=== PATIENT | female | born 1990 | race Caucasian/White ===

== ENCOUNTER 2019-02-09 20:32 | Emergency (ER) | payer OTHER ==
[~2019-02-09] VITALS: Ht 154.9 cm; Wt 69.4 kg
[~2019-02-09 20:32] MED LIST: ATOR40TA PO; BENA40TA PO; DULO30EC PO; HUM SUBQ; LANTUS SUBQ; METF500T PO; METO-460 PO; METO25TA PO; METR250T2 PO; PRAV20TA2 PO
[2019-02-09 20:39] VITALS: BP 150/100
--- NOTE | 2019-02-09 20:46 | NUR ---
PT AMBULATED TO THE RESTROOM, GAVE U/A SPECIMEN AND OUT TO LOBBY, VSS
--- NOTE | 2019-02-09 21:49 | NUR ---
BIB SELF. PT C/O RIGHT ARM PAIN P/S FALL. PT HAS LIMTED ROM TO THE RIGHT ARM. PT HAS PAIN TO THE RIGHT SHOULDER AND ELBOW. PT HAS ABRASIONS TO THE LEFT FINGER, ELBOW AND LEFT KNEE. DENIES HITTING HEAD, NO LOC.
--- NOTE | 2019-02-09 22:42 | NUR ---
PATIENT REQUESTING PAIN MEDICATION, NOMI MADE AWARE.
[2019-02-09] MEDS ORDERED: HYDROcodone/APAP 7.5/325 MG 1 TAB PO ONE (22:45)
[2019-02-09 23:57] VITALS: BP 150/100
--- NOTE | 2019-02-09 23:58 | NUR ---
Patient discharged with v/s stable. Written and verbal after care instructions given and explained. Patient alert, oriented and verbalized understanding of instructions. Ambulatory with steady gait. All questions addressed prior to discharge. ID band removed. Patient advised to follow up with PMD. Rx of MARCIAL FERRIS given. Patient educated on indication of medication including possible reaction and side effects. Opportunity to ask questions provided and answered. Addendum: 02/09/19 at 2358 by TERESITA WAITING IN LOBBY TO BE PICKED UP BY MOTHER.
== END 2019-02-09 23:58 | disposition home or self-care (01) ==
LOC: MED 20:32
DX: S52.121A Displaced fracture of head of right radius, initial encounter for closed fracture (principal); S40.812A Abrasion of left upper arm, initial encounter; S80.212A Abrasion, left knee, initial encounter; E11.9 Type 2 diabetes mellitus without complications; I10 Essential (primary) hypertension; E05.90 Thyrotoxicosis, unspecified without thyrotoxic crisis or storm; Z88.0 Allergy status to penicillin; Z79.4 Long term (current) use of insulin; Z79.899 Other long term (current) drug therapy; W01.0XXA Fall on same level from slipping, tripping and stumbling without subsequent striking against object, initial encounter; Y93.02 Activity, running; Y92.89 Other specified places as the place of occurrence of the external cause; Y99.8 Other external cause status
CPT/HCPCS: 29105; 73030; 73080; 81025; 82948; 99284

== ENCOUNTER 2019-05-01 14:30 | Emergency (ER) | payer OTHER ==
[~2019-05-01] VITALS: Ht 154.9 cm; Wt 67.7 kg
[2019-05-01 14:53] VITALS: BP 153/106
--- NOTE | 2019-05-01 15:00 | NUR ---
BIB . AAO X4 C/O NECK PAIN SINCE WAKING UP THIS MORNING. CONSTANT PRESSURE PAIN FORM BASE OF HEAD TO TOP OF SHOULDER BLADES AT 8/10. PT UNABLE TO STRAIGHTEN HEAD WITHOUT SEVERE PAIN. PT STATES SHE WAS MOVING HEAVY OBJECTS YESTERDAY. + N/V. HOB UP. BED SIDE RAILS UP X1. ON LOW BED POSITION, LOCKED. ER TO EVALUATE PT.
--- NOTE | 2019-05-01 15:00 | NUR ---
PATIENT AMBULATED TO BED 10 AT THIS TIME.
[2019-05-01] MEDS ORDERED: MORPHINE SULFATE 4 MG/ML SYR IM ONE (15:05)
--- NOTE | 2019-05-01 16:47 | NUR ---
DR PANDYA AT BEDSIDE FOR PT EVALUATION
[2019-05-01 16:56] VITALS: BP 144/88
--- NOTE | 2019-05-01 16:56 | NUR ---
Patient discharged with v/s stable. Written and verbal after care instructions given and explained. Patient alert, oriented and verbalized understanding of instructions. Ambulatory with steady gait. All questions addressed prior to discharge. ID band removed. Patient advised to follow up with PMD. Rx of NORCO 5MG-325MG given. Patient educated on indication of medication including possible reaction and side effects. Opportunity to ask questions provided and answered.
== END 2019-05-01 16:56 | disposition home or self-care (01) ==
LOC: MED 14:30
DX: S13.4XXA Sprain of ligaments of cervical spine, initial encounter (principal); I47.1 Supraventricular tachycardia; E11.9 Type 2 diabetes mellitus without complications; I10 Essential (primary) hypertension; E05.90 Thyrotoxicosis, unspecified without thyrotoxic crisis or storm; Z98.84 Bariatric surgery status; Z79.4 Long term (current) use of insulin; Z79.899 Other long term (current) drug therapy; Z88.0 Allergy status to penicillin; X58.XXXA Exposure to other specified factors, initial encounter; Y93.89 Activity, other specified; Y92.89 Other specified places as the place of occurrence of the external cause; Y99.8 Other external cause status
CPT/HCPCS: 81002; 81025; 96372; 99283; J2270

== ENCOUNTER 2020-01-24 02:08 | Emergency (ER) | payer OTHER ==
[~2020-01-24] VITALS: Ht 154.9 cm; Wt 70.3 kg
[2020-01-24 02:14] VITALS: BP 160/98
--- NOTE | 2020-01-24 02:27 | NUR ---
RECEIVED A 29/F FROM TRIAGE WITH C/O LEG FOREARM SWELLING S/T A POSSIBLE BUG BITE. MINIMAL SWELLING NOTED TO LEFT FOREARM. FULL ROM. CMS INTACT. IN BED FOR MSE.
[2020-01-24] MEDS ORDERED: IBUPROFEN 800 MG TAB PO ONE (02:45)
[2020-01-24 02:51] VITALS: BP 160/98
--- NOTE | 2020-01-24 02:51 | NUR ---
Patient discharged with v/s stable. Written and verbal after care instructions given and explained. Patient alert, oriented and verbalized understanding of instructions. Ambulatory with steady gait. All questions addressed prior to discharge. ID band removed. Patient advised to follow up with PMD. Rx of MOTRIN, BENEDRYL CREAM given. Patient educated on indication of medication including possible reaction and side effects. Opportunity to ask questions provided and answered.
== END 2020-01-24 02:51 | disposition home or self-care (01) ==
LOC: MED 02:08
DX: S50.862A Insect bite (nonvenomous) of left forearm, initial encounter (principal); E05.90 Thyrotoxicosis, unspecified without thyrotoxic crisis or storm; E11.9 Type 2 diabetes mellitus without complications; I10 Essential (primary) hypertension; I51.89 Other ill-defined heart diseases; N28.9 Disorder of kidney and ureter, unspecified; Z88.0 Allergy status to penicillin; Z79.899 Other long term (current) drug therapy; W57.XXXA Bitten or stung by nonvenomous insect and other nonvenomous arthropods, initial encounter; Y93.89 Activity, other specified; Y92.89 Other specified places as the place of occurrence of the external cause; Y99.8 Other external cause status
CPT/HCPCS: 99282

== ENCOUNTER 2020-04-05 04:37 | Emergency (ER) | payer OTHER ==
[~2020-04-05] VITALS: Ht 154.9 cm; Wt 67.6 kg
[2020-04-05 04:43] VITALS: BP 153/108
--- NOTE | 2020-04-05 04:49 | NUR ---
PT AMBULATED TO BED 4 WITH STEADY GAIT.
--- NOTE | 2020-04-05 04:52 | NUR ---
Laurence elmore in [facility] - 04/05/20 at [address] Parra examining patient.
--- NOTE | 2020-04-05 04:52 | NUR ---
ERMD AT BEDSIDE.
[2020-04-05] MEDS ORDERED: NACL 0.9% 1,000 ML IV ONE (05:00)
[2020-04-05] MEDS ORDERED: KETOROLAC 15 MG/ML VIAL IVP ONE (05:00)
[2020-04-05] MEDS ORDERED: METOCLOPRAMIDE 10 MG/2 ML INJ VIAL IVP ONE (05:00)
[2020-04-05] MEDS ORDERED: diphenhydrAMINE 50 MG/ML VIAL IVP ONE (05:00)
--- NOTE | 2020-04-05 05:13 | NUR ---
RECEIVED A 29/F FROM TRIAGE WITH A C/O POSTERIOR HEAD PAIN WITH N/V X 1 HR. PT DENIES HX OF MIGRAINE HEADACHE. DENIES BLURRED VISION, INJURY/TRAUMA. NO OBVIOUS NEURO DEFECITS NOTED. PT IS ACTIVLEY VOMITTING. WILL MEDICATE ORDERED AND REASSESS.
--- NOTE | 2020-04-05 05:22 | NUR ---
PT NOW RATES PAIN AT 2/10. BP DECREASED TO 132/84. SLEEPING COMFORTABLY.
[2020-04-05 07:17] VITALS: BP 153/108
--- NOTE | 2020-04-05 07:18 | NUR ---
Patient discharged with v/s stable. Written and verbal after care instructions given and explained. Patient alert, oriented and verbalized understanding of instructions. Ambulatory with steady gait. All questions addressed prior to discharge. ID band removed. Patient advised to follow up with PMD. Rx of TYLENOL; MOTRIN given. Patient educated on indication of medication including possible reaction and side effects. Opportunity to ask questions provided and answered.
== END 2020-04-05 07:18 | disposition home or self-care (01) ==
LOC: MED 04:37
DX: R51 Headache (principal)
CPT/HCPCS: 96374; 96375; 99284; J1200; J1885; J2765; J7030

== ENCOUNTER 2020-07-30 22:10 | Emergency (ER) | payer OTHER ==
[~2020-07-30] VITALS: Ht 154.9 cm; Wt 68.9 kg
[~2020-07-30 22:10] MED LIST changes: +METR-520 PO; -METR250T2 PO
[2020-07-30 22:20] VITALS: BP 164/119
[2020-07-30] MEDS ORDERED: LORazepam 0.5 MG TAB PO ONE (22:40)
[2020-07-30] MEDS ORDERED: ONDANSETRON 4 MG ODT PO ONE (22:40)
[2020-07-30] MEDS ORDERED: KETOROLAC 30 MG/ML VIAL IM ONE (22:40)
[2020-07-30 22:54] LABS: BASOPHILS # (AUTO) 0.1 K/uL (0.00-0.22); BASOPHILS % (AUTO) 0.9 % (0.0-2.0); EOSINOPHILS # (AUTO) 0.3 K/uL (0-0.4); EOSINOPHILS % (AUTO) 2.8 % (0.0-4.0); HEMATOCRIT 40.8 % (36-48); HEMOGLOBIN 13.8 g/dL (12.0-16.0); LYMPHOCYTES # (AUTO) 2.9 K/uL (2.5-16.5); MEAN CORPUSCULAR HEMOGLOBIN 30 pg (27-31); MEAN CORPUSCULAR HGB CONC 34 g/dL (33-37); MONOCYTES # (AUTO) 0.7 K/uL (0.8-1.0); MONOCYTES % (AUTO) 7.5 % (1.7-9.3); NEUTROPHILS # (AUTO) 5.2 K/uL (1.8-7.7); NEUTROPHILS % (AUTO) 56.8 % (42.2-75.2); PLATELET COUNT (AUTO) 296 K/uL (140-450); RED BLOOD CELL COUNT(AUTO) 4.69 MIL/uL (4.20-5.40); RED CELL DISTRIBUTION WIDTH 13.2 % (11.6-13.7); WHITE BLOOD COUNT (AUTO) 9.1 K/uL (4.8-10.8)
[2020-07-30 23:03] LABS: ANION GAP 11.2 (8-16); CARBON DIOXIDE 31.8 mmol/L (21-32); CREATININE 1.5 mg/dL (0.6-1.3)
[2020-07-31 00:50] VITALS: BP 135/97
== END 2020-07-31 00:50 | disposition home or self-care (01) ==
LOC: MED 22:10
DX: N93.8 Other specified abnormal uterine and vaginal bleeding (principal); E11.9 Type 2 diabetes mellitus without complications; I10 Essential (primary) hypertension; E07.9 Disorder of thyroid, unspecified; Z79.4 Long term (current) use of insulin; Z98.890 Other specified postprocedural states; Z79.899 Other long term (current) drug therapy; Z88.0 Allergy status to penicillin; Z86.79 Personal history of other diseases of the circulatory system
CPT/HCPCS: 36415; 76830; 80048; 81025; 85025; 96372; 99284; J1885; Q0162

== ENCOUNTER 2021-12-26 11:03 | Emergency (ER) | payer OTHER ==
[~2021-12-26] VITALS: Ht 154.9 cm; Wt 68.0 kg
[2021-12-26 11:08] VITALS: BP 174/108
--- NOTE | 2021-12-26 11:11 | NUR ---
AMBULATED TO BED 6 WITH STEADY GAIT
--- NOTE | 2021-12-26 11:14 | NUR ---
AMBULATED TO BATHROOM WITH STEADY GAIT
[2021-12-26] MEDS ORDERED: NACL 0.9% 1,000 ML IV ONE ×2 (11:30)
[2021-12-26] MEDS ORDERED: ONDANSETRON 4 MG/2 ML VIAL IVP ONE (11:30)
[2021-12-26] MEDS ORDERED: KETOROLAC 30 MG/ML VIAL IVP ONE (11:30)
[2021-12-26] MEDS ORDERED: PANTOPRAZOLE 40 MG INJ VIAL IVP ONE (11:30)
--- NOTE | 2021-12-26 11:35 | NUR ---
XRAY AT BEDSIDE
--- NOTE | 2021-12-26 11:38 | NUR ---
31 Y/O F BIB SELF C/O MID CHEST PAIN 8/10 SINCE LAST NIGHT. C/O N/V/D SINCE THIS MORNING. PT BLOOD GLUCOSE 487. PT TOOK HER INSULINE 1100 BEFOR ARIVAL 15 UNITS OF REGURLAR INSULIN. ALLERGIES: PENICILLIN PMH: HTN, DM TYPE 1, DEPRESSION, ANXIETY, GI PACEMAKER
--- NOTE | 2021-12-26 11:40 | NUR ---
LAB AT BEDSIDE.
[2021-12-26 11:56] LABS: BASOPHILS # (AUTO) 0.1 K/uL (0.00-0.22); BASOPHILS % (AUTO) 1.1 % (0.0-2.0); EOSINOPHILS # (AUTO) 0.2 K/uL (0-0.4); EOSINOPHILS % (AUTO) 2.7 % (0.0-4.0); HEMATOCRIT 40.2 % (36-48); HEMOGLOBIN 13.3 g/dL (12.0-16.0); LYMPHOCYTES # (AUTO) 1.6 K/uL (2.5-16.5); LYMPHOCYTES % (AUTO) 25.2 % (20.5-51.1); MEAN CORPUSCULAR HEMOGLOBIN 28 pg (27-31); MEAN CORPUSCULAR HGB CONC 33 g/dL (33-37); MEAN CORPUSCULAR VOLUME 85.5 fL (80-94); MONOCYTES # (AUTO) 0.4 K/uL (0.8-1.0); MONOCYTES % (AUTO) 6.7 % (1.7-9.3); NEUTROPHILS # (AUTO) 4.2 K/uL (1.8-7.7); NEUTROPHILS % (AUTO) 64.3 % (42.2-75.2); PLATELET COUNT (AUTO) 319 K/uL (140-450); RED BLOOD CELL COUNT(AUTO) 4.71 MIL/uL (4.20-5.40); RED CELL DISTRIBUTION WIDTH 13.7 % (11.6-13.7); WHITE BLOOD COUNT (AUTO) 6.5 K/uL (4.8-10.8)
--- NOTE | 2021-12-26 12:12 | NUR ---
NOTED INCREASED BP, STATED THAT THEY DIDNT TAKE THEIR LISINOPRIL 2.5 MG IN THE MORNING. PT ALSO STATED THAT THEY STARTED NEW MEDICATION, BUPROPRION 150MG THIS WEEK. CHEST PAIN DECREASED FROM 8 TO 6/10 FROM SHARP TO PRESSURE
[2021-12-26 12:24] LABS: ALBUMIN 3.1 g/dL (3.4-5.0); ANION GAP 13.2 (8-16); ASPARTATE AMINOTRANSFERASE 13 U/L (15-37); CARBON DIOXIDE 28.5 mmol/L (21-32); CHLORIDE 97 mmol/L (98-107); CREATININE 1.8 mg/dL (0.6-1.3); GFR ARICAN-AMERICAN 42 mL/min (>90); LIPASE 38 U/L (73-393); POTASSIUM 3.7 mmol/L (3.5-5.1); SODIUM SERUM 135 mmol/L (136-145); TOTAL BILIRUBIN 0.3 mg/dL (0.0-1.0); UREA NITROGEN, BLOOD 18 mg/dL (7-18)
[2021-12-26 12:36] LABS: GLUCOSE 476 mg/dL (74-106)
[2021-12-26 14:00] VITALS: BP 152/100
[2021-12-26] MEDS ORDERED: ONDA-188 SL (14:45)
--- NOTE | 2021-12-26 15:15 | NUR ---
Patient discharged with v/s stable. Written and verbal after care instructions ABOUT GASTRIC PAIN given and explained. Patient alert, oriented and verbalized understanding of instructions. Ambulatory with steady gait. All questions addressed prior to discharge. ID band removed. Patient advised to follow up with PMD. Rx of ZOFRAN given. Patient educated on indication of medication including possible reaction and side effects. Opportunity to ask questions provided and answered.
== END 2021-12-26 15:15 | disposition home or self-care (01) ==
LOC: MED 11:03
DX: E10.43 Type 1 diabetes mellitus with diabetic autonomic (poly)neuropathy (principal); K31.84 Gastroparesis; E10.65 Type 1 diabetes mellitus with hyperglycemia; R11.2 Nausea with vomiting, unspecified; R07.89 Other chest pain; E86.0 Dehydration; R00.0 Tachycardia, unspecified; F41.9 Anxiety disorder, unspecified; I10 Essential (primary) hypertension; E05.90 Thyrotoxicosis, unspecified without thyrotoxic crisis or storm; Z87.448 Personal history of other diseases of urinary system; Z98.890 Other specified postprocedural states; Z79.899 Other long term (current) drug therapy; Z88.0 Allergy status to penicillin
CPT/HCPCS: 36415; 71045; 80053; 81002; 81025; 82948; 83690; 84484; 85025; 85379; 93005; 96361; 96374; 96375; 99285; C9113; J1885; J2405; J7030; Q0092

== ENCOUNTER 2022-04-11 07:05 | Emergency (ER) | payer OTHER ==
[~2022-04-11] VITALS: Ht 154.9 cm; Wt 67.1 kg
[~2022-04-11 07:05] MED LIST changes: +METF-346 PO; -METF500T PO; +ONDA-188 SL
[2022-04-11 07:13] VITALS: BP 164/121
--- NOTE | 2022-04-11 07:20 | NUR ---
BIB SELF C/O N/V, GENERALIZED WEAKNESS, CADENA, LOWER BACK PAIN X 2 DAYS. BLOOD SUGAR 284 AT THIS TIME. PMH: DM, HTN, HLD, ANXIETY, DEPRESSION
--- NOTE | 2022-04-11 07:42 | NUR ---
PT AMB TO BED 9
[2022-04-11] MEDS: NACL 0.9% 1,000 ML IV SCH (07:53)
[2022-04-11 07:56] LABS: APPEARANCE,URINE CLEAR (CLEAR); BILIRUBIN,URINE NEGATIVE (NEGATIVE); BLOOD, URINE TRACE-I (NEGATIVE); COLOR,URINE YELLOW (YELLOW); LEUKOCYTE ESTERASE ,URINE NEGATIVE (NEGATIVE); NITRITE, URINE POSITIVE (NEGATIVE); PH,URINE 6.5 (5.0-9.0); UGLUCOSE 3+ (NEGATIVE)
[2022-04-11 07:58] LABS: HEMATOCRIT 37.9 % (36-48); HEMOGLOBIN 12.4 g/dL (12.0-16.0); MEAN CORPUSCULAR HEMOGLOBIN 28 pg (27-31); MEAN CORPUSCULAR HGB CONC 33 g/dL (33-37); MEAN CORPUSCULAR VOLUME 86.2 fL (80-94); PLATELET COUNT (AUTO) 335 K/uL (140-450); RED BLOOD CELL COUNT(AUTO) 4.39 MIL/uL (4.20-5.40); RED CELL DISTRIBUTION WIDTH 14.1 % (11.6-13.7); WHITE BLOOD COUNT (AUTO) 8.5 K/uL (4.8-10.8)
[2022-04-11 08:10] LABS: EOSINOPHILS % (MANUAL) 3 % (0-4); LYMPHOCYTES % (MANUAL) 18 % (20-46); MONOCYTES % (MANUAL) 7 % (5-12)
[2022-04-11 08:11] LABS: ALBUMIN 3.2 g/dL (3.4-5.0); ANION GAP 11.2 (8-16); CARBON DIOXIDE 31.5 mmol/L (21-32); CREATININE 1.5 mg/dL (0.6-1.3); POTASSIUM 4.7 mmol/L (3.5-5.1); TOTAL BILIRUBIN 0.2 mg/dL (0.0-1.0)
[2022-04-11 08:19] LABS: CORRECTED WHITE BLOOD COUNT 8.5 K/uL (4.5-11.0); EOSINOPHILS % (MANUAL) 3 % (0-4); LYMPHOCYTES % (MANUAL) 18 % (20-46); MONOCYTES % (MANUAL) 7 % (5-12)
[2022-04-11 09:19] LABS: WBC,URINE 0-5 /HPF (0-5)
[2022-04-11] MEDS: INSULIN REGULAR, HUMAN 100 UNIT/ML VIAL SUBQ ONE (10:48)
--- NOTE | 2022-04-11 12:45 | NUR ---
IV removed, catheter intact and site benign. Applied folded 4x4 gauze and tape to stop bleeding.
[2022-04-11 12:47] VITALS: BP 146/99
--- NOTE | 2022-04-11 12:47 | NUR ---
Patient discharged with v/s stable. Written and verbal after care instructions given and explained. Patient verbalized understanding. Ambulatory with steady gait. All questions addressed prior to discharge. Advised to follow up with PMD.
== END 2022-04-11 12:47 | disposition home or self-care (01) ==
LOC: MED 07:05
DX: E10.65 Type 1 diabetes mellitus with hyperglycemia (principal); R11.2 Nausea with vomiting, unspecified; I10 Essential (primary) hypertension; E10.9 Type 1 diabetes mellitus without complications; I47.1 Supraventricular tachycardia; Z79.899 Other long term (current) drug therapy; Z79.4 Long term (current) use of insulin; Z88.0 Allergy status to penicillin; Z98.890 Other specified postprocedural states
CPT/HCPCS: 36415; 80053; 81001; 81025; 82803; 83690; 85025; 87086; 96360; 96372; 99283; J1815; J7030; 96361

== ENCOUNTER 2022-05-16 19:12 | Emergency (ER) | payer OTHER ==
[~2022-05-16] VITALS: Ht 154.9 cm; Wt 68.0 kg
[2022-05-16] MEDS ORDERED: diphenhydrAMINE 50 MG/ML VIAL IVP ONE (19:50)
[2022-05-16] MEDS ORDERED: PROCHLORPERAZINE 10 MG/2 ML VIAL IVP ONE (19:50)
[2022-05-16] MEDS ORDERED: NACL 0.9% 1,000 ML IV ONE (19:50)
[2022-05-16 19:51] VITALS: BP 183/118
--- NOTE | 2022-05-16 19:52 | NUR ---
PT AMBULATED TO BED AT THIS TIME
[2022-05-16] MEDS ORDERED: KETOROLAC 30 MG/ML VIAL IVP ONE (20:20)
[2022-05-16 20:31] LABS: BASOPHILS # (AUTO) 0.1 K/uL (0.00-0.22); BASOPHILS % (AUTO) 0.7 % (0.0-2.0); EOSINOPHILS # (AUTO) 0.4 K/uL (0-0.4); EOSINOPHILS % (AUTO) 3.7 % (0.0-4.0); HEMATOCRIT 39.6 % (36-48); HEMOGLOBIN 13.1 g/dL (12.0-16.0); LYMPHOCYTES # (AUTO) 2.3 K/uL (2.5-16.5); LYMPHOCYTES % (AUTO) 20.9 % (20.5-51.1); MEAN CORPUSCULAR HEMOGLOBIN 28 pg (27-31); MEAN CORPUSCULAR HGB CONC 33 g/dL (33-37); MEAN CORPUSCULAR VOLUME 85.7 fL (80-94); MONOCYTES # (AUTO) 1.1 K/uL (0.8-1.0); MONOCYTES % (AUTO) 9.5 % (1.7-9.3); NEUTROPHILS # (AUTO) 7.2 K/uL (1.8-7.7); NEUTROPHILS % (AUTO) 65.2 % (42.2-75.2); PLATELET COUNT (AUTO) 345 K/uL (140-450); RED BLOOD CELL COUNT(AUTO) 4.62 MIL/uL (4.20-5.40); RED CELL DISTRIBUTION WIDTH 13.9 % (11.6-13.7); WHITE BLOOD COUNT (AUTO) 11.1 K/uL (4.8-10.8)
--- NOTE | 2022-05-16 20:42 | NUR ---
31YR OLD FEMALE BIB SELF C/O VOMITING CADENA GLUC HIGH. PT IS A DM INSULIN DEPENDENT LAST ACCU CHECK [id number] FROM PATIENTS PERSONAL READING. 06/25 PAIN LEVEL FOR CADENA. DENIES FEVER CP COUGH OR SOB. 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 HOB ELEVATED. BED AT LOWEST POSITION. PCN DM HTN
[2022-05-16 20:52] LABS: ALBUMIN 3.4 g/dL (3.4-5.0); ANION GAP 13.3 (8-16); CARBON DIOXIDE 31.2 mmol/L (21-32); CREATININE 1.7 mg/dL (0.6-1.3); POTASSIUM 4.5 mmol/L (3.5-5.1); TOTAL BILIRUBIN 0.1 mg/dL (0.0-1.0)
[2022-05-16 21:24] VITALS: BP 153/97
--- NOTE | 2022-05-16 21:33 | NUR ---
The patient's care was reviewed and supervised by Prudence Zavala RN.
== END 2022-05-16 21:24 | disposition home or self-care (01) ==
LOC: MED 19:12
DX: R51.9 Headache, unspecified (principal); I10 Essential (primary) hypertension; N18.9 Chronic kidney disease, unspecified; E03.9 Hypothyroidism, unspecified; I25.10 Atherosclerotic heart disease of native coronary artery without angina pectoris; Z88.0 Allergy status to penicillin; Z79.899 Other long term (current) drug therapy
CPT/HCPCS: 36415; 80053; 81025; 85025; 96361; 96374; 96375; 99284; J0780; J1200; J1885; J7030

== ENCOUNTER 2022-11-04 20:48 | Emergency (ER) | payer OTHER ==
[~2022-11-04] VITALS: Ht 154.9 cm; Wt 69.4 kg
[2022-11-04 20:53] VITALS: BP 142/83
--- NOTE | 2022-11-05 00:40 | NUR ---
Dr. White examining patient.
[2022-11-05] MEDS ORDERED: CLAR500T14 PO (00:46)
[2022-11-05] MEDS ORDERED: BENZ200C4 PO (00:46)
[2022-11-05 00:49] VITALS: BP 142/83
--- NOTE | 2022-11-05 00:49 | NUR ---
Patient discharged with v/s stable. Written and verbal after care instructions given and explained. Patient alert, oriented and verbalized understanding of instructions. Ambulatory with steady gait. All questions addressed prior to discharge. ID band removed. Patient advised to follow up with PMD. Rx of BENZONATATE, CLARITHROMYCIN given. Patient educated on indication of medication including possible reaction and side effects. Opportunity to ask questions provided and answered.
== END 2022-11-05 00:49 | disposition home or self-care (01) ==
LOC: MED 20:48
DX: J20.9 Acute bronchitis, unspecified (principal); E03.9 Hypothyroidism, unspecified; I10 Essential (primary) hypertension; I25.10 Atherosclerotic heart disease of native coronary artery without angina pectoris; N18.9 Chronic kidney disease, unspecified; E78.5 Hyperlipidemia, unspecified; Z88.0 Allergy status to penicillin
CPT/HCPCS: 99283